=== PATIENT | male | born 1965 | race Caucasian/White ===

== ENCOUNTER → 2025-09-26 17:17 | Outpatient (REF) | payer BC, SELFPAY | LOC: DHSLP 17:17 | PROVIDERS: ATTENDING PHYSICIAN Physician Assistant Medical; FAMILY PHYSICIAN Family Medicine | DX: G47.33 Obstructive sleep apnea (adult) (pediatric) (principal) | CPT/HCPCS: 95800 ==

== ENCOUNTER → 2025-10-02 07:10 | Outpatient (REF) | payer BC, SELFPAY | LOC: HWRCS 07:10 | PROVIDERS: ATTENDING PHYSICIAN Internal Medicine Cardiovascular Disease; FAMILY PHYSICIAN Family Medicine | DX: I48.0 Paroxysmal atrial fibrillation (principal) | CPT/HCPCS: 93306 ==